=== PATIENT | female | born 1985 | race Caucasian/White ===

== ENCOUNTER 2019-02-06 09:37 | Observation (INO) | payer OTHER ==
[~2019-02-06] VITALS: Ht 152.4 cm; Wt 77.6 kg
[2019-02-06] MEDS ORDERED: LEVO75TA PO (10:48)
[2019-02-06] MEDS ORDERED: PNV1TABL50 PO (10:48)
== END 2019-02-06 11:10 | disposition home or self-care (01) ==
LOC: 8 EST LDRP 09:37
PROVIDERS: ADMIT Obstetrics & Gynecology; ATTEND Obstetrics & Gynecology
DX: O26.899 Other specified pregnancy related conditions, unspecified trimester (principal); R10.9 Unspecified abdominal pain; Z3A.00 Weeks of gestation of pregnancy not specified
CPT/HCPCS: 99281; G0378; A4315